=== PATIENT | female | born 1955 | race Native Hawaiian/Other Pacific Islander ===

== ENCOUNTER 2024-11-10 11:38 | Outpatient (AMB) | payer OTHER, SELFPAY ==
--- NOTE | 2024-11-10 09:48 | A.OFFVIS_ITS ---
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: No Allergies penicillin G Allergy (Mild, Verified 10/25/24 13:25) HIVES Medication List - Last Reconciled 11/10/24 by WADE Combs buspirone 15 mg PO TID cholecalciferol (vitamin D3) 50 mcg PO DAILY dexlansoprazole 60 mg PO DAILY diltiazem HCl ER 90 mg PO BID ferrous sulfate (FeroSul) 325 mg PO DAILY fluticasone propionate 50 mcg/actuation sprays intranasal hydrochlorothiazide 12.5 mg PO QAM levothyroxine (Synthroid) 137 mcg PO DAILY magnesium aspart,citrate,oxide (Triple Magnesium Complex) mg PO mecobalamin (vitamin B12) 1,000 mcg PO DAILY meloxicam 15 mg PO DAILY memantine 5 mg PO BID metformin ER 500 mg PO BID montelukast 10 mg PO DAILY oxycodone mg PO potassium chloride ER 10 mEq PO DAILY rimegepant (Nurtec ODT) 75 mg PO Q OTHER DAY rosuvastatin 5 mg PO DAILY sertraline 50 mg PO DAILY spironolactone 25 mg PO BID sumatriptan succinate 50 mg PO HPI Comments Details: Pt is here to start the [facility] loss program. Her goal is to lose weight and achieve a healthy lifestyle as well as to improve, if not resolve, obesity related medical conditions, including hypertension, hypercholesterolemia. She reports first being concerned about her weight since 1997, highest weight to date was 236. Current weight is 196.5 pounds with a BMI of 34.8. She has tried multiple methods of weight loss including fat diets and gastric bypass in 2007 at [facility] without permanent results, she achieved a weight of 98 pounds however gained 100 pounds over the last 7-8 years. She had multiple courses of steroids for her asthma and she is no longer needing steroid treatment. Since starting the asthma injection she has no longer needed steroids and has not had an asthma attack in 3 years. She lives alone. She does not work. She states she needs back surgery and her surgeon wants her to lose 20-30 pounds prior to surgery. She also states that she would prefer to follow-up with a weight management group closer to where she lives in [place]. She states that she would like to complete her appointment here today but we will follow up at [facility] in the future She wakes at:?430 am, and goes to bed at?830 pm. Dinner is at 4-5 pm. Breakfast: coffee cream and sugar, crackers AM snack: fruit - apple or pear Lunch: skip PM snack: skip Dinner: mashed potato w chicken or fish sometimes rice After dinner: skip Other snacks: none Liquids: 32 oz water no soda or juice Alcohol/marijuana/tobacco intake: 3 glasses red wine on weekends, no cannabis, quit tobacco 25 years ago Exercise: pool exercise 2 x per week, walking in pool, 30 min planning on joining [employer] at [place] GERD score: 8 MORIS score: 7 ESS score: 2 QOL score: 97 PFSH Medical History Myocardial infarct Hx of cataract Surgical History Total knee replacement status Hx of gastric bypass Hx of tubal ligation Hx of section History of carpal tunnel release of both wrists Hx of thyroidectomy Hx of hemorrhoidectomy Hx of knee surgery Family History Mother No problems noted. Father No problems noted. Social History Alcohol intake: current Alcohol intake frequency: holidays/special occasions only Patient Tobacco Use Status: Former Tobacco user Telehealth Telehealth Telehealth Platform: Telephone Location of provider rendering services: practice address Location of patient: address on file Patient Identification confirmed using: Name, : Yes Telehealth method: voice only Patient verbally consented to treatment: Yes Patient verbally consented to billing insurance company: Yes Patient informed of any privacy concerns related to visit: Yes Minutes spent on Phone/Video with Pt.: 40 Assessment & Plan Assessment & Plan (1) Hx of gastric bypass: Comment: 2007 [facility] - open Code(s): Z98.84 - Bariatric surgery status Category: Surgical Plan: Patient is a pleasant 69-year-old female who underwent gastric bypass in 2007 at [facility]. She called our office looking for weight management but would prefer to follow-up closer to where she lives. She appreciated the information that I gave her including advice regarding her current meal plan and exercise plan. I suggested that she use premier protein ready to drink shake, 6 oz mixed with 2 oz of unsweetened almond milk at 6-8, 10-12, 2-4, and a meal at 18:00 with 3 oz of protein and vegetables. Avoiding pasta, potatoes, rice, corn. Recommend removing sugar and cream from her coffee in the morning. Recommend increasing fluids to 64 oz per day. Recommended following up with lab data. Discussed removing meloxicam as a nonsteroidal anti-inflammatory, adding PPI. She states that she will follow up with weight management in [facility]. She certainly may return to our program at any point in the future if she wishes.
[2024-11-10 10:58] VITALS: BMI 34.8
--- OUTSIDE RECORDS SUMMARY | 2024-11-10 11:40 | XMS_ITS | Clinical Summary ---
Author Organization [facility] it Address [address] [place] [address] Care Team Providers Care Skin Toggler Name Role Phone Yaima Moraes MD Primary Care Provider [phone] Immunizations Name Administration Dates Next Due [employer] SARS-CoV-2 COVID -19, vector-nr, [id number], preservative free 06/17/2020 Pfizer SARS-CoV-2 COVID-19, mRNA, LNP-S, preservative free 08/03/2021,03/12/2021 Social History Tobacco Use Types Packs/Day Years Used Date Smoking Tobacco: Never Assessed Comments Unknown Sex and Gender Information Value Date Recorded Sex Assigned at Not on file Legal Sex Female 5:38 AM EST Gender Identity Not on file Sexual Orientation Not on file Plan of Treatment Health Maintenance Due Date Last Done Comments Breast Cancer Screening 1955 DTaP,Tdap,and Td Vaccines (1 - Tdap) 08/03/1974 Pneumococcal Vaccine: 50+ Years (1 of 1 - PCV) 08/03/2005 Zoster Vaccines (1 of 2) 08/03/2005 Cholesterol Screening (Lipid Panel) 05/16/2023 10/05/2017 Colorectal Cancer Screening: Colonoscopy 05/16/2023 Falls Risk Assessment 05/16/2023 Hepatitis C Screening 05/16/2023 Hypertension/CHF/CAD Annual BMP Blood Test 05/16/2023 11/09/2017, 10/03/2017 Osteoporosis Screening (Bone Density Screening) 05/16/2023 Social Influencers of Health Screening 05/16/2023 COVID-19 Vaccine (4 - 2023-2 5 season) 2023 08/03/2021, 03/12/2021, 06/17/2020 Depression Screening 04/12/2024 Influenza Vaccine (#1) 2024 RSV Immunization Adult Patients (1 - 1-dose 75+ series) 08/03/2030 HIB Vaccines Aged Out No longer eligi ble based on patient's age to complete this topic HPV Vaccines Aged Out No longer eligi ble based on patient's age to complete this topic Hepatitis A Vaccines Aged Out No long er eligible based on patient's age to complete this topic Hepatitis B Vaccines Aged Out No long er eligible based on patient's age to complete this topic IPV Vaccines Aged Out No longer eligi ble based on patient's age to complete this topic MMR Vaccines Aged Out No longer eligi ble based on patient's age to complete this topic Meningococcal ACWY Vaccine Aged Out N o longer eligible based on patient's age to complete this topic Meningococcal B Vaccine Aged Out No l onger eligible based on patient's age to complete this topic RSV Immunization Patients Under 20 months Aged Out No longer eligible b ased on patient's age to complete this topic Varicella Vaccines Aged Out No longer eligible based on patient's age to complete this topic Care Teams Skin Toggler Relationship Specialty Start Date End Date Yaima Moraes MD PCP - General Internal Medicine 02/13/16
--- OUTSIDE RECORDS SUMMARY | 2024-11-10 11:40 | XMS_ITS | Encounter Summary ---
Author Organization [facility] Address [address] [place] [address] Care Team Providers Care Food And Nutrition Supervisor Name Role Phone Maria Del Rosario Romero MD Primary Care Provider [phone] Yaima Moraes MD Primary Care Provider [phone] Jorge Calderón MD Primary Care Provider [phone] Reason for Visit * Reason Comments Medication Refill Encounter Details Date Type Department Care Team (Late st Contact Info) Description 09/12/2016 Refill [facility] [address] [place] [address] [address] [place] [phone] Nuria Champagne MD [address] [place] [address] Social History Tobacco Use Types Packs/Day Years Used Date Smoking Tobacco: Never Assessed Comments Unknown Sex and Gender Information Value Date Recorded Sex Assigned at Female 12/23/2023 9:39 AM EDT Legal Sex Female 3:50 PM EDT Gender Identity Female 12/23/2023 9:39 AM EDT Sexual Orientation Heterosexual (straight) 12/22 9:39 AM EDT documented as of this encounter Plan of Treatment Upcoming Encounters Date Type Department Care Team (Late st Contact Info) Description 02/19/2025 1:30 PM EST Office Visit [facility] Bariatric Surgery [address] [place] [address] Buck, Marquita L, PA-[address] [address] documented as of this encounter Visit Diagnoses Not on filedocumented in this encounter Care Teams Food And Nutrition Supervisor Relationship Specialty Start Date End Date Maria Del Rosario Romero MD PCP - General 08/27/08 02/17/24 Yaima Moraes MD [address] [place] [address] [place] [address] PCP - General Internal Medicine 02/18/24 08/17/24 Jorge Calderón MD [address] [place], [place] [address] [address] PCP - General Internal Medicine 08/18/24 documented as of this encounter
--- OUTSIDE RECORDS SUMMARY | 2024-11-10 11:40 | XMS_ITS | Encounter Summary ---
Author Organization [facility] Address [address] [place] [address] Care Team Providers Care Tire Fabric Inspector Name Role Phone Yaima Moraes MD Primary Care Provider [phone] Sandra Montanez MD Unavailable [phone] Wilma Miller RN Unavailable Unavailab Luis John MD Unavailable Josue Feliciano APRN Unavailable [phone] Evangelista Birch MD Unavailable [phone] Jorge Calderón MD Primary Care Provider [phone] Yaima Moraes MD Primary Care Provider [phone] Jorge Calderón MD Primary Care Provider [phone] Encounter Details Date Type Department Care Team (Late st Contact Info) Description 09/30/2020 Orders Only [address] [address] [phone] Josue Feliciano APRN [address] [facility] [phone] Social History Tobacco Use Types Packs/Day Years Used Date Smoking Tobacco: Former Cigarettes 2 25 0 04/12/1974 - 04/12/1999 Smokeless Tobacco: Former Alcohol Use Standard Drinks/Week Comments Yes 0 (1 standard drink = 0.6 oz pur e alcohol) special occassions Hunger Vital Sign Answer Date Recorded Within the past 12 months, y ou worried that your food would run out before you got the money to buy more. Patient declined Ran Out of Food in the Last Year Not on file 07/14/2020 PRAPARE - Transportation Answer Date Re corded In the past 12 months, has l ack of transportation kept you from medical appointments or from getting medications? No 07/14/2020 Lack of Transportation (Non-Medical) Not on file 07/14/2020 Comments No Sex and Gender Information Value Date Recorded Sex Assigned at Female 11/03/2023 1:37 PM EDT Legal Sex Female 10:23 AM EST Gender Identity Female 08/10/2023 11:13 AM EDT Sexual Orientation Straight 08/10/2023 11 :13 AM EDT Occupation Industry Job Start Date Job End Date [employer] Not on file Not on file Not on fi le COVID-19 Exposure Response Date Recorded In the last month, have you been in contact with someone who was confirmed or suspected to have Coronavirus / COVID-19? No / Unsure 09/30/2020 1:19 PM EDT documented as of this encounter Functional Status * Does this person have serious difficulty walking or climbing stairs? Answer Date of Assessment Author Yes 01/16/2019 4:18 PM EDT documented as of this encounter Plan of Treatment Upcoming Encounters Date Type Department Care Team (Late st Contact Info) Description 12/07/2024 1:00 PM EDT Nurse Only [facility] Department of Pulmonology [address] [place] [address] 12/15/2024 9:40 AM EDT Office Visit [facility] Department of Internal Medicine [address] [facility] [address] [place] [address] Jorge Calderón MD [address] [facility] [address] [place] [address] 12/22/2024 2:30 PM EDT Clinical Support [facility] Department of Neurology [address] [place] [address] Annamaria Maya, CLAIMS VICE PRESIDENT [address] [facility] [place] [phone] 12/27/2024 11:15 AM EDT Follow-Up [facility] Department of Dermatology [address] [place] [address] Jimmy Blanco MD [address] [place] [address] [place] [address] 01/08/2025 12:00 PM EDT [facility] [address] [address] Sandra Montanez MD [address] [place] [address]-[place] [phone] 02/23/2025 1:30 PM EST Office Visit [facility] of General Surgery [address] [place] [address] Kely Kaur APRN [address] [place] [address] DN 3RD FLOOR [facility] [place] [phone] 03/05/2025 1:30 PM EST Scheduled Telephone Visit [facility] of [facility] [address] [place] [address] 06/21/2025 9:30 AM EDT Office Visit [facility] of Ophthalmology [address] [place] [address] Debbie Sears MD [address] [place] [address] DEPT OF OPHTHALMOLOGY [place], [place] [address] 06/22/2025 11:30 AM EDT Office Visit [facility] [address] [address] Luis Sierra MD [address] [place] [address]-[place] [address] 08/07/2025 2:00 PM EDT Office Visit [facility] Department of Pulmonology [address] [place] [address] Dayday Webb MD [address] [place] [address] documented as of this encounter Goals Goal Patient Goal Type Associated Problems Recent Progress Patient-Stated? Author To get better, breathe better, heal cough General Yes Wilma Miller, MONICA Take your medication every day Lifestyle No Wilma Miller RN documented as of this encounter Visit Diagnoses Not on filedocumented in this encounter Additional Health Concerns Infection Onset Date Last Indicated Resolved Time (Rule out) C. difficile 11/13/2021 11/13/2021 0807/2021 2:50 PM EDT documented as of this encounter Care Teams Tire Fabric Inspector Relationship Specialty Start Date End Date Yaima Moraes MD [address] [facility] [place] [address] PCP - General 06/23/17 07/17/24 Jorge Calderón MD [address] [place] [address] [address] [place] [address] PCP - General Internal Medicine 07/18/24 07/20/24 Yaima Moraes MD [address] [place] [address] [place] [address] PCP - General Internal Medicine 07/21/24 07/30/24 Jorge Calderón MD [address] [place] [address] [address] [place] [address] PCP - General Internal Medicine 08/14/24 Sandra Montanez MD [address] [place] [address]-[place] [phone] Consulting Physician Endocrinology 10/18/18 Wilma Miller, RN [address] [place] [address] Registered Nurse Nursing 01/17/19 Luis Sierra MD [address] [place] [address]-[place] [phone] Obstetrics and Gynecology 11/13/20 Josue Feliciano APRN [address] [place] [address] [phone] Advanced Nurse Practitioner Orthopedic Surgery 09/19/21 Evangelista Birch MD [facility] [place] [id number] [place] [address] Ophthalmology 09/19/21 documented as of this encounter
--- OUTSIDE RECORDS SUMMARY | 2024-11-10 11:40 | XMS_ITS | Clinical Summary ---
Author Organization [facility] Address [address] [place] [address] Care Team Providers Care Care Program Director Name Role Phone Altaf Remy MD Primary Care Provider [phone] Social History Tobacco Use Types Packs/Day Years Used Date Smoking Tobacco: Never Assessed Comments Unknown Sex and Gender Information Value Date Recorded Sex Assigned at Not on file Legal Sex Female 5:15 PM EDT Gender Identity Not on file Sexual Orientation Not on file Plan of Treatment Health Maintenance Due Date Last Done Comments Hepatitis C Screening 1955 DTaP/Tdap/Td (1 - Tdap) 08/03/1973 Mammogram/Breast Imaging 1995 Pneumococcal 50+ years (1 of 1 - PCV) 08/03/2005 Zoster (Shingrix) (1 of 2) 08/03/2005 Bone Density 08/03/2020 COVID-19 Vaccine ( - 2023-2 5 season) 2023 Influenza (#1) 2024 RSV (1 - 1-dose 75+ series) 08/03/2030 HPV Vaccine (No Doses Required) Completed Hep A Aged Out No longer eligi ble based on patient's age to complete this topic Hep B Aged Out No longer eligi ble based on patient's age to complete this topic Hib Aged Out No longer eligi ble based on patient's age to complete this topic Meningococcal ACWY Aged Out No longer eligible based on patient's age to complete this topic Pap Smear Discontinued Zoster (Zostavax) Discontinued Care Teams Care Program Director Relationship Specialty Start Date End Date Altaf Remy MD [address] [place] [address] PCP - General 11/16/22
--- OUTSIDE RECORDS SUMMARY | 2024-11-10 11:40 | XMS_ITS | Clinical Summary ---
Author Organization [facility] Address [address] [place] [address] Care Team Providers Care Fibreglass Gun Hand Name Role Phone Yaima Moraes MD Primary Care Provider [phone] Allergies Active Allergy Reactions Criticality Noted Date Comments Ampicillin Hives High 10/04/2017 Penicillins Rash Low 02/17/2016 Medications Medication Sig Dispensed Refills Start Date End Date Status Multiple Vitamins-Minerals (CENTRUM ADULTS PO)Indications:supplem ent Take by mouth. 0 Active aspirin 81 MG chewable tabletIndications:card iac history Chew 81 mg by mouth daily. 0 Active diltiazem (DILTIAZEM CD) 180 MG 24 hr capsuleIndications:Hyp ertension Take 180 mg by mouth daily. 0 Active sertraline (ZOLOFT) 25 MG tabletIndications:mood Take 25 mg by mouth daily. 0 Active topiramate (TOPAMAX) 25 MG tabletIndications:Migr kike Take 50 mg by mouth daily. 0 Active topiramate (TOPAMAX) 100 MG tabletIndications:Migr kike Take 100 mg by mouth every night at bedtime. 0 Active levothyroxine (SYNTHROID, LEVOXYL) tablet 125 mcgIndications:Hypothy roidism Take 125 mcg by mouth daily. 0 Active SUMAtriptan (IMITREX) 50 MG tabletIndications:Migr kike Take 50 mg by mouth every 2 (two) hours as needed for migraine. 0 Active mometasone-formoterol (DULERA) 200-5 MCG/ACT inhalerIndications:Ast hma Inhale 2 puffs into the lungs 2 (two) times a day. 0 08/23/2017 Active busPIRone (BUSPAR) 5 MG tabletIndications:Anxi ety Disorder Take 1 tablet (5 mg total) by mouth 3 (three) times a day. 45 tablet 1 10/08/2017 Active folic acid (FOLVITE) tablet 1 mgIndications:suppleme nt Take 1 tablet (1 mg total) by mouth daily. 30 tablet 0 10/09/2017 Active polyethylene glycol (MIRALAX) packetIndications:Cons tipation Take 17 g by mouth daily. 14 each 0 10/09/2017 Active calcium carbonate (CALCIUM 600) 600 MG tabletIndications:supp lement Take 1 tablet (600 mg total) by mouth 3 (three) times a day with meals. 60 tablet 0 10/08/2017 Active thiamine 100 MG tabletIndications:supp lement Take 1 tablet (100 mg total) by mouth daily. 30 tablet 0 10/09/2017 Active gabapentin (NEURONTIN) 100 MG capsuleIndications:Alc ohol Withdrawal Syndrome,anxiety Take 1 capsule (100 mg total) by mouth 3 (three) times a day. 45 capsule 1 10/08/2017 Active rosuvastatin (CRESTOR) tablet 5 mgIndications:Hyperlip idemia Take 1 tablet (5 mg total) by mouth every evening. 14 tablet 1 10/08/2017 Active hydroCHLOROthiazide (MICROZIDE) 12.5 MG capsuleIndications:Hyp ertension Take 1 capsule (12.5 mg total) by mouth daily. 14 capsule 1 10/08/2017 Active OLANZapine zydis (ZYPREXA) 5 MG disintegrating tabletIndications:Sona r Depressive Disorder Take 1 tablet (5 mg total) by mouth every night at bedtime. 90 tablet 0 10/22/2017 Active potassium chloride ER (K-DUR,KLOR-CON) tablet 20 mEq Take 1 tablet (20 mEq total) by mouth 2 (two) times a day. 30 tablet 0 11/09/2017 Active Active Problems Problem Noted Date Diagnosed Date Major depression with psychotic features 018 Anxiety 10/04/2017 Disease of thyroid gland 10/04/2017 Essential hypertension 10/04/2017 Migraines 10/04/2017 Alcohol withdrawal syndrome without complication 10/04/2017 Arthritis 10/04/2017 Social History Tobacco Use Types Packs/Day Years Used Date Smoking Tobacco: Former Cigarettes 1.5 Q uit: 10/04/2000 Smokeless Tobacco: Never Tobacco Cessation:Counseling Given: Yes Alcohol Use Standard Drinks/Week Comments Yes 4 (1 standard drink = 0.6 oz pur e alcohol) Sex and Gender Information Value Date Recorded Sex Assigned at Not on file Gender Identity Not on file Sexual Orientation Not on file Last Filed Vital Signs Vital Sign Reading Time Taken Comments Blood Pressure 106/71 12/10/2017 5:12 PM EDT Pulse 89 12/10/2017 5:12 PM EDT Temperature 37.1 C (98.8 F) 12/10/2017 5:12 PM EDT Respiratory Rate 16 12/10/2017 5:12 PM EDT Oxygen Saturation 99% 12/10/2017 5:12 PM EDT Inhaled Oxygen Concentration - - Weight 67.1 kg (148 lb) 12/10/2017 2:46 PM EDT Height 160 cm (5' 3 ) 12/10/2017 2:46 PM EDT Body Mass Index 26.22 12/10/2017 2:46 PM EDT Plan of Treatment Health Maintenance Due Date Last Done Comments Hepatitis C Screening 1955 Depression Screening 1967 Preventative Health Evaluation 08/03/1973 Colon Cancer Screening (Colonoscopy) 08/03/2000 Breast Cancer Screening (Mammogram) 08/03/2005 Fall Risk Assessment 08/03/2020 Osteoporosis Screening (DEXA Scan) 08/03/2020 COVID-19 Vaccine ( season) 2023 01/19/2022, 08/03/2021, 03/12/2021, Additional history exists Influenza Vaccine (#1) 2024 , 12/10/2020, 12/23/2019, Additional history exists DTap / Tdap / Td (2 - Td or Tdap) 10/23/2027 10/22/2017 RSV Adult > 60+ Yrs or (1 - 1-dose 75+ series) 08/03/2030 Shingrix-Zoster Vaccine Completed 06/27/2021, 04/09 Pneumococcal Vaccine Completed 09/19/2021, 09/18/2020, 03/19/2015 Hepatitis B Vaccines Aged Out No long er eligible based on patient's age to complete this topic RSV Ped < 20 months Aged Out No longe r eligible based on patient's age to complete this topic Advance Directives For more information, please contact: [phone] Documents on File Type Date Recorded 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 Care Teams Fibreglass Gun Hand Relationship Specialty Start Date End Date Yaima Moraes MD [address] [place] [id number] PCP - General Internal Medicine 02/13/16
== END 2024-11-10 13:39 | disposition home or self-care (01) ==
LOC: HO.HBS 11:38
PROVIDERS: Visit Provider Physician Assistant Surgical
DX: E66.9 Obesity, unspecified (principal); Z68.34 Body mass index [BMI] 34.0-34.9, adult; Z98.84 Bariatric surgery status
CPT/HCPCS: 98010